=== PATIENT | female | born 1980 | race Hispanic/Latino ===

== ENCOUNTER 2016-12-17 22:33 | Emergency (ER) | payer SELFPAY ==
[~2016-12-17 22:33] MED LIST: GLIM2TAB2 PO; HYDR-4003 PO; METF1000 PO; OMEP20TA86 PO
[2016-12-17 22:35] VITALS: BP 134/78; PULSE 74; RESP 20; O2SAT 100
--- NOTE | 2016-12-17 22:47 | ED.REPORT ---
HPI-Extremity Problem Upper Date of Service Dec 17, 2016 ED Provider: Guerda Aguilar MD The patient is a 36 year old female w/ a hx of DM who presents to the ED with a laceration to her right, first, finger she received 5 hrs ago while washing dishes. She is able to bend and straighten the finger. It is not actively bleeding at the ED. Nursing Notes Stated Complaint: FINGER LACERATION ON R HAND Chief Complaint: Laceration Nursing Notes Reviewed: Yes Allergies: Coded Allergies: No Known Allergies (Verified Allergy, Unknown, 12/17/16) Scheduled Glimepiride (Glimepiride) 2 Mg Tablet 2 MG PO DAILYAC Metformin (Glucophage) 1,000 Mg Tablet 1,000 MG PO BID Omeprazole (Omeprazole) 20 Mg Tablet.dr 20 MG PO BID Scheduled PRN Hydrocodone-Acetaminophen 5-325 mg (Hydrocodone-Acetaminophen 5-325 mg) 1 Each Tablet 1 TABLET PO Q6H PRN PRN For Pain General Time Seen by MD: 22:47 Chief Complaint Finger injury right 1 Hx Obtained From: Patient Arrived By: Walk-in Onset Occurred: 5 - 8 hours ago Symptom Duration: Since onset Caused by: Accidental Location: : Finger right 1 Quality: Painful Severity: Current: Mild Associated with: Reports: Bleeding Recent Healthcare: No recent doctor visit, No recent hospitalization Similar Sx Previous: No Past Medical History Past Medical History Notes: OBGYN Dr. Arnoldo Roche, Medicine ([phone]) Past Medical History P:1 Reports: Diabetes mellitus Past Surgical History Family History noncontributory Smoking History Never Smoker Social History Alcohol Use: Denies alcohol use Drug Use: Denies drug use Other Social History: Good social support, Lives with children, Local resident Ambulatory Status Independent Review of Systems Complete sys rev & neg: except as marked. Hematologic: Reports Bleeding (laceration on right first finger ) Physical Exam Physical Exam Notes: Initial Vital Signs Vital Signs (First) Date Time Temp Pulse Resp B/P Pulse Ox O2 Delivery O2 Flow Rate FiO2 12/17/16 22:35 36.2 74 20 134/78 100 Room Air Initial VS: Reviewed, Vital signs normal Head / Eyes: Atraumatic, Normocephalic, PERRL ENT: Mucous membranes moist, Conjunctiva normal Respiratory: Breath sounds normal, Clear to auscultation, No respiratory distress Cardiovascular: Regular rate & rhythm, Heart sounds normal, Intact distal pulses Abdomen / GI: Soft, Non-tender Lymphatic: No lymphadenopathy Lower Extremities: Vascular intact, Neuro intact Neurologic: Alert, Oriented General/Constitutional: Awake, Alert Trauma / Burn / Environmental: Positive: Laceration normal flexion extension 1cm laceration to right index finger proximal balanced posterior Procedures Laceration Management Time: 23:03 Procedure Performed by: ED physician Consent / Setup / Site Prep: Informed consent provided, Consent from patient , Hand hygiene observed, Stand sterile technique Location of Wound: 1cm laceration to proximal right index finger no sign of any tendon issue Wound Length: 1 cm Local Anesthesia: Bupivacaine 0.5%, 2cc Digit Involved: Index finger right Wound Preparation: Betadine Foreign Body Explore / Removal: Explored for foreign body # Sutures - Skin: 2 Repair Subcutaneous: ___ O (Ethilon 5.0) Suture Technique: Simple Post-Procedure / Complications: Antibiotic oint applied, Dressing applied, No complications, Condition improved, Tolerated procedure well, Patient stable Re-Eval/Medical Decision Med Decision/Clinical Course The patient has an isolated finger injury, no sign of tendon or nerve injury. Counseled Regarding: Diagnosis, Lab results, Need for follow-up, When/why to return to ED Discharge & Departure Impression: Primary Impression: Laceration Disposition: Home Discharge Condition All VS Reviewed: Yes Condition: Stable Patient Instructions: Finger Laceration (ED) Additional Instructions: Keep the wound clean and dry. Do not wet it for 24-36 hrs. After this, you can clean it and apply antibiotic ointment 1-2 times per day. You will need to have the stitches removed in 12-14 days. You can do this at your primary care physician or at the Emergency Room. Return to the Emergency Department for any new or worsening symptoms including fever, swelling, redness, and bleeding. Referrals: [facility] (PCP) Scribe Attestation Portion of this note were transcribed by Shellie Teixeira. I, Dr. Aguilar, personally performed the history, physical exam, and medical decision-making: I reviewed and confirmed the accuracy for the information in the transcribed note. Signed by: angeline Sears, 12/17/16 [id number] copies to: [facility] Jena M MD Dec 17, 2016 22:47 Shellie Teixeira Dec 17, 2016 22:53
[2016-12-17] MEDS ORDERED: HYDROcodone-APAP 5-325 mg Tablet PO ONE (23:15)
[2016-12-17 23:22] VITALS: BP 133/75; PULSE 70; RESP 16; O2SAT 100
== END 2016-12-17 23:33 | disposition home or self-care (01) ==
LOC: SED 22:33
DX: S61.230A Puncture wound without foreign body of right index finger without damage to nail, initial encounter (principal); W25.XXXA Contact with sharp glass, initial encounter; Y93.G1 Activity, food preparation and clean up; Y92.9 Unspecified place or not applicable; Y99.8 Other external cause status; E11.9 Type 2 diabetes mellitus without complications; Z79.84 Long term (current) use of oral hypoglycemic drugs